=== PATIENT | male | born 1965 | race Caucasian/White ===

== ENCOUNTER → 2017-01-03 | Outpatient (CLI) | payer OTHER ==
[~2017-01-03] MED LIST: ASPI81CH6 CHEW; CITRPOW3 PO
[2017-01-03 13:29] LABS: BICARBONATE 28.5 MEQ/L (21.0-32.0)
== END ==
LOC: CLAB 12:46
PROVIDERS: ATTEND Family Medicine
DX: Z90.5 Acquired absence of kidney (principal)
CPT/HCPCS: 36415; 80048